=== PATIENT | male | born 1995 | race African-American/Black ===

== ENCOUNTER 2021-02-08 22:26 | Emergency (ER) | payer OTHER ==
[~2021-02-08] VITALS: Ht 175.3 cm; Wt 86.4 kg
[2021-02-08 22:26] VITALS: BP 128/87
[2021-02-08] MEDS ORDERED: CEPH500T PO (23:10)
--- NOTE | 2021-02-08 23:10 | PHYS DOC ---
Past History Past Medical History: No Pertinent History Past Surgical History: No Surgical History Alcohol Use: None General Adult EDM: Chief Complaint: SKIN PROBLEM HPI: HPI: 25-year-old male presents with skin lesion. The patient states that he had a little bump in his chest wall that is grown over the last 2 days. He has not had any drainage. He is concerned it could be infection. He has never had skin infections as far as he knows. No history of MRSA. He has no other complaints this time. Review of Systems: Review of Systems: Constitutional: Denies fever or chills Eyes: Denies change in visual acuity HENT: Denies nasal congestion or sore throat Respiratory: Denies cough or shortness of breath Cardiovascular: Denies chest pain or edema GI: Denies abdominal pain, nausea, vomiting, bloody stools or diarrhea : Denies dysuria Musculoskeletal: Denies back pain or joint pain Integument: Lesion on the chest Neurologic: Denies headache, focal weakness or sensory changes Endocrine: Denies polyuria or polydipsia Lymphatic: Denies swollen glands Psychiatric: Denies depression or anxiety Allergies: Allergies: Allergies Coded Allergies Type Severity Reaction Last Updated Verified No Known Drug Allergies 02/08/21 No Physical Exam: PE: Constitutional: Well developed, well nourished, no acute distress, non-toxic appearance. [] HENT: Normocephalic, atraumatic, bilateral external ears normal, oropharynx moist, no oral exudates, nose normal. [] Eyes: PERRLA, EOMI, conjunctiva normal, no discharge. [] Neck: Normal range of motion, no tenderness, supple, no stridor. [] Cardiovascular:Heart rate regular rhythm, no murmur [] Lungs & Thorax: Bilateral breath sounds clear to auscultation [] Abdomen: Bowel sounds normal, soft, no tenderness, no masses, no pulsatile masses. [] Skin: 1.5 cm erythematous warm area of the central chest wall. No drainage, no palpable abscess. [] Back: No tenderness, no CVA tenderness. [] Extremities: No tenderness, no cyanosis, no clubbing, ROM intact, no edema. [] Neurologic: Alert and oriented X 3, normal motor function, normal sensory function, no focal deficits noted. [] Psychologic: Affect normal, judgement normal, mood normal. [] Current Patient Data: Vital Signs: Vital Signs Date Time Temp Pulse Resp B/P (MAP) Pulse Ox O2 Delivery O2 Flow Rate FiO2 02/08/21 22:26 98.6 57 18 128/87 (101) 99 Room Air EKG: EKG: [] Radiology/Procedures: Radiology/Procedures: [] Heart Score: C/O Chest Pain: N/A Risk Factors: Risk Factors: DM, Current or recent (<one month) smoker, HTN, HLP, family history of CAD, obesity. Risk Scores: Score 0 - 3: 2.5% MACE over next 6 weeks - Discharge Home Score 4 - 6: 20.3% MACE over next 6 weeks - Admit for Clinical Observation Score 7 - 10: 72.7% MACE over next 6 weeks - Early Invasive Strategies Course & Med Decision Making: Course & Med Decision Making Pertinent Labs and Imaging studies reviewed. (See chart for details) Patient appears to have cellulitis of his anterior chest. I will treat him with Keflex for 7 days. We will give the first dose in the ED. He is stable for discharge at this time. [] Dragon Disclaimer: Dragon Disclaimer: This electronic medical record was generated, in whole or in part, using a voice recognition dictation system. Departure Departure: Impression: Primary Impression: Cellulitis of chest wall Disposition: HOME / SELF CARE / HOMELESS Condition: STABLE Referrals: PCP,UNKNOWN (PCP) Patient Instructions: Cellulitis, [id number] Scripts Cephalexin (CEPHALEXIN) 500 Mg Tablet 1 TAB PO TID for cellulitis for 7 Days, #21 TAB Prov: MISSY BENOIT DO 02/08/21 MISSY BENOIT DO Feb 08, 2021 23:10
[2021-02-08] MEDS ORDERED: CEPHALEXIN 250 MG CAPSULE PO ONE (23:15)
[2021-02-08] MEDS ORDERED: CEPHALEXIN 250 MG CAPSULE ONE (23:15)
== END 2021-02-08 23:15 | disposition home or self-care (01) ==
LOC: ER 22:26
DX: L03.313 Cellulitis of chest wall (principal)
CPT/HCPCS: 99283

== ENCOUNTER 2021-05-10 01:13 | Emergency (ER) | payer OTHER ==
[~2021-05-10] VITALS: Ht 175.3 cm; Wt 86.4 kg
[~2021-05-10 01:13] MED LIST: CEPH500T PO
[2021-05-10 01:31] VITALS: BP 139/70
--- NOTE | 2021-05-10 01:41 | PHYS DOC ---
Past History Past Medical History: No Pertinent History Past Surgical History: No Surgical History Alcohol Use: None General Adult EDM: Chief Complaint: SEXUALLY TRANSMITTED DISEASE HPI: HPI: "...It hurts to pee",,. "The last time I had sex unprotected... was about 10 days. ago... " Patient is a 25 year old male who presents with above hx and complaints dysuria. Patient has had some mild discharge. Patient has had history of 4 lifetime sex partners. No history of immunosuppression. No history of STD. Has had a previous episode of chlamydia. Review of Systems: Review of Systems: Constitutional: Denies fever or chills Eyes: Denies change in visual acuity HENT: Denies nasal congestion or sore throat Respiratory: Denies cough or shortness of breath Cardiovascular: Denies chest pain or edema GI: Denies abdominal pain, nausea, vomiting, bloody stools or diarrhea : Complains of dysuria Musculoskeletal: Denies back pain or joint pain Integument: Denies rash Neurologic: Denies headache, focal weakness or sensory changes Endocrine: Denies polyuria or polydipsia Lymphatic: Denies swollen glands Psychiatric: Denies depression or anxiety Family History: Family History: Noncontributory Current Medications: Current Meds: See nursing for home meds Allergies: Allergies: Allergies Coded Allergies Type Severity Reaction Last Updated Verified No Known Drug Allergies 05/10/21 No Physical Exam: PE: Constitutional: Well developed, well nourished, no acute distress, non-toxic ap pearance. [] HENT: Normocephalic, atraumatic, bilateral external ears normal, oropharynx moist, no oral exudates, nose normal. [] Eyes: PERRLA, EOMI, conjunctiva normal, no discharge. [] Neck: Normal range of motion, no tenderness, supple, no stridor. [] Cardiovascular:Heart rate regular rhythm, no murmur [] Lungs & Thorax: Bilateral breath sounds to apex few scattered wheezes. Auscultation [] Abdomen: Bowel sounds normal, soft, no tenderness, no masses, no pulsatile masses. [] Circumcised male. Mild discharge penile head. Testicles tender. No groin adenopathy. Skin: Warm, dry, no erythema, no rash. [] Back: No tenderness, no CVA tenderness. [] Extremities: No tenderness, no cyanosis, no clubbing, ROM intact, no edema. [] Neurologic: Alert and oriented X 3, normal motor function, normal sensory function, no focal deficits noted. [] Psychologic: Affect anxious, judgement normal, mood normal. [] Current Patient Data: Vital Signs: Vital Signs Date Time Temp Pulse Resp B/P (MAP) Pulse Ox O2 Delivery O2 Flow Rate FiO2 05/10/21 01:31 97.8 48 16 139/70 100 Room Air EKG: EKG: [] Radiology/Procedures: Radiology/Procedures: [] Heart Score: C/O Chest Pain: N/A Risk Factors: Risk Factors: DM, Current or recent (<one month) smoker, HTN, HLP, family history of CAD, obesity. Risk Scores: Score 0 - 3: 2.5% MACE over next 6 weeks - Discharge Home Score 4 - 6: 20.3% MACE over next 6 weeks - Admit for Clinical Observation Score 7 - 10: 72.7% MACE over next 6 weeks - Early Invasive Strategies Course & Med Decision Making: Course & Med Decision Making Pertinent Labs and Imaging studies reviewed. (See chart for details) Patient to received Rocephin IM 1 g, Zithromax 1 g, and Flagyl 2 g. Patient [place] e doxycycline 100 mg twice daily. Follow-up culture. Practice safe sex. Return if any concerns. Consider follow-up testing. Consider HIV and syphilis testing at the [facility]. Impression: 1. UTI 2. Dysuria 3. Suspect STD [] Dragon Disclaimer: Dragon Disclaimer: This electronic medical record was generated, in whole or in part, using a voice recognition dictation system. Departure Departure: Referrals: PCP,NO (PCP) Scripts Doxycycline Hyclate (DOXYCYCLINE HYCLATE) 100 Mg Tablet 100 MG PO BID for dysuria for 10 Days, #20 TAB Prov: ROSHNI DIEGO MD 05/10/21 Kulwant Disclaimer This chart was dictated in whole or in part using Voice Recognition software in a busy, high-work load, and often noisy Emergency Department environment. It may contain unintended and wholly unrecognized errors or omissions. ROSHNI DIEGO MD May 10, 2021 01:41
[2021-05-10 02:15] LABS: BILIRUBIN,URINE NEG (NEG); CLARITY,URINE CLEAR; COLOR,URINE YELLOW; GLUCOSE,URINE NEG (NEG); NITRITE,URINE NEG (NEG); RBC,URINE 0 /HPF (0-2); UROBILINOGEN,URINE 0.2 mg/dL (0.2 mg/dL)
[2021-05-10 02:16] LABS: BACTERIA,URINE FEW /HPF (0-FEW); SQUAMOUS EPITHELIAL CELL,UR OCC /LPF
[2021-05-10] MEDS ORDERED: DOXY100T PO (02:54)
[2021-05-10] MEDS: ONDANSETRON ODT 4 MG TAB.RAPDIS PO ONE (04:38)
[2021-05-10] MEDS: cefTRIAXone IM 1 GM VIAL IM ONE (04:39)
[2021-05-10] MEDS: metroNIDAZOLE 500 MG TABLET PO ONE (04:40)
[2021-05-10] MEDS: AZITHROMYCIN 250 MG TABLET. PO ONE (04:40)
== END 2021-05-10 04:41 | disposition home or self-care (01) ==
LOC: ER 01:13
DX: R30.0 Dysuria (principal); A64 Unspecified sexually transmitted disease
CPT/HCPCS: 36415; 81001; 87086; 87491; 87591; 96372; 99284; J0696; Q0162